=== PATIENT | male | born 1975 | race Caucasian/White ===

== ENCOUNTER 2021-06-02 13:24 | Emergency (ER) | payer OTHER ==
[2021-06-02] MEDS ORDERED: Bacitracin 1 PK ONE (14:44)
== END 2021-06-02 14:52 | disposition home or self-care (01) ==
LOC: CSHERS 13:24
DX: S60.221A Contusion of right hand, initial encounter (principal); S70.12XA Contusion of left thigh, initial encounter; S70.11XA Contusion of right thigh, initial encounter; V43.52XA Car driver injured in collision with other type car in traffic accident, initial encounter